=== PATIENT | female | born 1980 | race Caucasian/White ===

== ENCOUNTER 2017-09-23 19:37 | Emergency (ER) | payer MEDICAID ==
--- NOTE | 2017-09-23 19:58 | EDM.PDOC ---
ED HPI GENERAL MEDICAL PROBLEM - General Chief Complaint: General Stated Complaint: MEDICAL CLEARANCE Time Seen by Provider: 09/23/17 19:44 Source of Information: Reports: Patient History Limitations: Reports: No Limitations - History of Present Illness INITIAL COMMENTS - FREE TEXT/NARRATIVE: HISTORY AND PHYSICAL: History of present illness: Patient is a 36-year-old female who presents to the emergency room today with complaints of hand pain and not having her until health medications. She is currently under arrest with law enforcement and is needing a medical clearance. 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 There is some purulent drainage noted at the abrasion site. Last tetanus was less than 5 years ago. Patient has a past medical history of bipolar and schizophrenia which she is supposed to take daily medications for, but has not taken in weeks. Review of systems: As per history of present illness and below otherwise all systems reviewed and negative. Past medical history: As per history of present illness and as reviewed below otherwise noncontributory. Surgical history: As per history of present illness and as reviewed below otherwise noncontributory. Social history: No reported history of drug or alcohol abuse. Family history: As per history of present illness and as reviewed below otherwise noncontributory. Physical exam: General: Well-developed and well-nourished 36-year-old female. Alert and oriented. Appears fidgety slightly anxious. Toxic appearing and in no acute distress. HEENT: Atraumatic, normocephalic, pupils equal and reactive bilaterally, negative for conjunctival pallor or scleral icterus, mucous membranes moist, throat clear, neck supple, nontender, trachea midline. No drooling or trismus noted. No meningeal signs Lungs: Clear to auscultation, breath sounds equal bilaterally, chest nontender. Heart: S1S2, regular rate and rhythm without overt murmur Abdomen: Soft, nondistended, nontender. Negative for masses or hepatosplenomegaly. Negative for costovertebral tenderness. Pelvis: Stable nontender. Genitourinary: Deferred. Rectal: Deferred. Skin: Abrasion and soft tissue swelling noted along the third, fourth and fifth medial knuckle of the right hand. There is purulent drainage noted along the fourth and fifth knuckle. Appears slightly unkempt. Multiple bruises of various healing stages noted. No lesions or rashes noted. Extremities: Atraumatic, negative for cords or calf pain. Neurovascular unremarkable. Neuro: Awake, alert, oriented. Cranial nerves II through XII unremarkable. Cerebellum unremarkable. Motor and sensory unremarkable throughout. Exam nonfocal. Notes: Tetanus is UTD. Will obtain an xray of the right hand. Wound care completed. Will place patient on Keflex 500mg BID x 10 days; as she is going to be in a crowded facility and I don't want her to get an infection at the abrasion site. Xray shows no fractures or dislocations. Supportive care measures were reviewed and discussed. Medical Clearance Form reviewed and signed. Blood sugar check completed; OJ given prior to discharge. Diagnostics: Xray right hand Therapeutics: Wound care Impression: Medical Clearance Right Hand Injury Plan: 1. Please take your antibiotic as prescribed. Keep the area clean and dry. Tylenol and/or ibuprofen as needed for pain management. 2. Follow up with your primary care provider for management of your home medications. 3. Return to the ED as needed and as discussed. Definitive disposition and diagnosis as appropriate pending reevaluation and review of above. Onset: Today Right Hand Pain Score (Numeric/FACES): 8 - Related Data Allergies Allergy/AdvReac Type Severity Reaction Status Date / Time Penicillins Allergy Unknown unknown Verified 09/23/17 19:43 Past Medical History Gastrointestinal History: Reports: Other (See Below) Other Gastrointestinal History: stomach ulcer Psychiatric History: Reports: Bipolar - Infectious Disease History Infectious Disease History: Reports: Hepatitis C - Past Surgical History Female Surgical History: Reports: Section Social & Family History - Family History Family Medical History: Noncontributory ED ROS GENERAL - Review of Systems Review Of Systems: ROS reveals no pertinent complaints other than HPI. ED EXAM, GENERAL - Physical Exam Exam: See Below (See dictation) Course - Vital Signs Last Recorded V/S: Last Vital Signs Temp 98.0 F 09/23/17 19:44 Pulse 78 09/23/17 19:44 Resp 18 09/23/17 19:44 BP 133/77 09/23/17 19:44 Pulse Ox 94 L 09/23/17 19:44 - Orders/Labs/Meds Orders: Active Orders 24 hr Category Date Time Status Hand 2V Rt [CR] Stat Exams 09/23/17 19:47 Taken Labs: Laboratory Tests 09/23/17 Range/Units 19:49 POC Glucose 74 (60-110) mg/dL Departure - Departure Time of Disposition: 20:02 Disposition: Home, Self-Care 01 Clinical Impression: Medical clearance for incarceration Injury of right hand Qualifiers: Encounter type: initial encounter Qualified Code(s): S69.91XA - Unspecified injury of right wrist, hand and finger(s), initial encounter - Discharge Information Instructions: Medical Screening Exam, Hand Pain Referrals: PCP,None [Primary Care Provider] - Forms: ED Department Discharge Additional Instructions: The following information is given to patients seen in the emergency department who are being discharged to home. This information is to outline your options for follow-up care. We provide all patients seen in our emergency department with a follow-up referral. The need for follow-up, as well as the timing and circumstances, are variable depending upon the specifics of your emergency department visit. If you don't have a primary care physician on staff, we will provide you with a referral. We always advise you to contact your personal physician following an emergency department visit to inform them of the circumstance of the visit and for follow-up with them and/or the need for any referrals to a consulting specialist. The emergency department will also refer you to a specialist when appropriate. This referral assures that you have the opportunity for follow-up care with a specialist. All of these measure are taken in an effort to provide you with optimal care, which includes your follow-up. Under all circumstances we always encourage you to contact your private physician who remains a resource for coordinating your care. When calling for follow-up care, please make the office aware that this follow-up is from your recent emergency room visit. If for any reason you are refused follow-up, please contact the [facility] at and asked to speak to the emergency department charge nurse. [facility] [address] [place] [id number] 1. Please take your antibiotic as prescribed. Keep the area clean and dry. Tylenol and/or ibuprofen as needed for pain management. 2. Follow up with your primary care provider for management of your home medications. 3. Return to the ED as needed and as discussed. - My Orders Last 24 Hours: My Active Orders 09/23/17 19:47 Hand 2V Rt [CR] Stat - Assessment/Plan Last 24 Hours: My Active Orders 09/23/17 19:47 Hand 2V Rt [CR] Stat
[2017-09-23 20:23] VITALS: BP 129/69
--- NOTE | 2017-09-24 17:10 | CR ---
EXAM DATE: 09/23/17 PATIENT'S AGE: 36 Patient: CARMEL TRAVIS Facility: [place], [place] Site . Site : 1980 Study: XRay Extremity Right hand [id number]/24/2018 7:57:26 PM Ordering Physician: Doctor Harden Final Report: INDICATION: pain TECHNIQUE: Two views of the right hand COMPARISON: None FINDINGS: Bones: No fractures or bone lesions. Joint spaces: Mild degenerative changes Soft tissues: Unremarkable. IMPRESSION: No acute bony abnormality. Dictated by Lito Loving MD @ 09/23/2017 8:08:28 PM Dictated by: Lito Loving MD @ 09/23/2017 20:08:36 (Electronic Signature) Report Signed by Proxy. DALE
== END 2017-09-23 20:23 | disposition home or self-care (01) ==
LOC: MW.ED 19:37
DX: S60.511A Abrasion of right hand, initial encounter (principal); W19.XXXA Unspecified fall, initial encounter; Z88.0 Allergy status to penicillin
CPT/HCPCS: 73120-26-RT; 73120-RT; 82962; 99283